=== PATIENT | female | born 1985 | race Caucasian/White ===

== ENCOUNTER 2022-08-18 04:25 | Emergency (ER) | payer OTHER ==
[~2022-08-18] VITALS: Ht 167.6 cm; Wt 59.0 kg
== END 2022-08-18 09:09 | disposition home or self-care (01) ==
LOC: ER 04:25
DX: F15.10 Other stimulant abuse, uncomplicated (principal); F19.10 Other psychoactive substance abuse, uncomplicated
CPT/HCPCS: 82947